=== PATIENT | male | born 1950 | race African-American/Black ===

== ENCOUNTER → 2017-12-02 | Outpatient (CLI) | payer MEDICARE ==
[~2017-12-02] MED LIST: CONTRAST GIVEN MC
[2017-12-02] MEDS: IOHEXOL 240 MG/ML 50ML VIAL. PO ×2 (08:45)
== END | disposition home or self-care (01) ==
LOC: CT 07:57
DX: K42.9 Umbilical hernia without obstruction or gangrene (principal); K43.9 Ventral hernia without obstruction or gangrene
CPT/HCPCS: 74176; Q9966

== ENCOUNTER 2018-08-09 17:14 | Emergency (ER) | payer MEDICARE ==
[~2018-08-09] VITALS: Ht 188 cm; Wt 90.7 kg
[~2018-08-09 17:14] MED LIST changes: +ALLO300T PO; +CEPH-264 PO; +CITA20TA6 PO; -CONTRAST GIVEN MC; +FEBU80TA2 PO; +METF500T16 PO; +OLME1TAB35 PO; +WARF-31 PO
[2018-08-09 17:31] VITALS: BP 122/67
[2018-08-09 18:17] LABS: BASO # 0.1 x10^3/uL (0.0-0.2); BASO % 1 % (0-3); EOS # 0.7 x10^3/uL (0.0-0.7); EOS % 8 % (0-3); HEMOGLOBIN 12.6 g/dL (13.0-17.5); LYMPH # 1.9 x10^3/uL (1.0-4.8); LYMPH % 22 % (24-48); MEAN CORPUSCULAR HEMOGLOBIN 29 pg (25-35); MEAN CORPUSCULAR HGB CONC 34 g/dL (31-37); MEAN CORPUSCULAR VOLUME 87 fL (79-100); MONO # 0.7 x10^3/uL (0.0-1.1); MONO % 8 % (0-9); NEUT # 5.3 x10^3uL (1.8-7.7); NEUT % 61 % (31-73); PLATELET COUNT 298 x10^3/uL (140-400); RED BLOOD COUNT 4.27 x10^6/uL (4.30-5.70); RED CELL DISTRIBUTION WIDTH 15.2 % (11.5-14.5); WHITE BLOOD COUNT 8.6 x10^3/uL (4.0-11.0)
[2018-08-09 18:26] LABS: PROTHROMBIN TIME PATIENT 15.5 SEC (11.7-14.0)
[2018-08-09 18:27] LABS: CALCIUM 9.7 mg/dL (8.5-10.1); CREATININE 1.7 mg/dL (0.7-1.3); GFR 48.7; POTASSIUM 4.6 mmol/L (3.5-5.1)
--- NOTE | 2018-08-09 19:14 | PHYS DOC ---
Past Medical History Past Medical History: Depression, Hypertension, TIA Additional Past Medical Histor: ENLARGED PROSTATE Past Surgical History: Tonsillectomy Additional Past Surgical Histo: HERNIA Alcohol Use: None Drug Use: None Adult General Chief Complaint Chief Complaint: OTHER COMPLAINTS HPI HPI Patient is a 68 year old AA male who was brought to the ER tonight for complaints of a bruise in his groin. His states that the patient is taking Coumadin for Afib. Pt denies any falls, injury, or pain at the site. states that his primary care doctor has been adjusting his coumadin dose to find the right doseage lately. Review of Systems Review of Systems Constitutional: Denies fever or chills [] Musculoskeletal: Denies joint pain [] Integument: reports bruising noted to left groin today Neurologic: Denies headache, focal weakness or sensory changes [] All other systems were reviewed and found to be within normal limits, except as documented in this note. Allergies Allergies Allergies Coded Allergies Type Severity Reaction Last Updated Verified No Known Drug Allergies 07/21/16 No Physical Exam Physical Exam Constitutional: Well developed, well nourished, no acute distress, non-toxic appearance. [] HENT: Normocephalic, atraumatic, bilateral external ears normal, nose normal. [ ] Eyes: PERRLA, conjunctiva normal, no discharge. [] Cardiovascular:Heart rate regular rhythm, no murmur [] Lungs & Thorax: Bilateral breath sounds clear to auscultation [] Skin: Warm, dry, rash noted to left inner thigh and groin that appears as a scaly raised red border consistent with tinea cruris Extremities: No tenderness, no cyanosis, no clubbing, ROM intact, no edema. [] Neurologic: Alert and oriented X 3, normal motor function, normal sensory function, no focal deficits noted. [] Psychologic: Affect normal, judgement normal, mood normal. [] Current Patient Data Vital Signs Vital Signs Date Time Temp Pulse Resp B/P (MAP) Pulse Ox O2 Delivery O2 Flow Rate FiO2 08/09/18 17:31 98.0 98 16 122/67 (85) 98 Room Air 98.0 Lab Values Laboratory Tests Test 08/09/18 18:05 White Blood Count 8.6 x10^3/uL (4.0-11.0) Red Blood Count 4.27 x10^6/uL (4.30-5.70) L Hemoglobin 12.6 g/dL (13.0-17.5) L Hematocrit 37.0 % (39.0-53.0) L Mean Corpuscular Volume 87 fL (79-100) Mean Corpuscular Hemoglobin 29 pg (25-35) Mean Corpuscular Hemoglobin Concent 34 g/dL (31-37) Red Cell Distribution Width 15.2 % (11.5-14.5) H Platelet Count 298 x10^3/uL (140-400) Neutrophils (%) (Auto) 61 % (31-73) Lymphocytes (%) (Auto) 22 % (24-48) L Monocytes (%) (Auto) 8 % (0-9) Eosinophils (%) (Auto) 8 % (0-3) H Basophils (%) (Auto) 1 % (0-3) Neutrophils # (Auto) 5.3 x10^3uL (1.8-7.7) Lymphocytes # (Auto) 1.9 x10^3/uL (1.0-4.8) Monocytes # (Auto) 0.7 x10^3/uL (0.0-1.1) Eosinophils # (Auto) 0.7 x10^3/uL (0.0-0.7) Basophils # (Auto) 0.1 x10^3/uL (0.0-0.2) Prothrombin Time 15.5 SEC (11.7-14.0) H Prothrombin Time INR 1.3 (0.8-1.1) H Sodium Level 141 mmol/L (136-145) Potassium Level 4.6 mmol/L (3.5-5.1) Chloride Level 107 mmol/L (98-107) Carbon Dioxide Level 26 mmol/L (21-32) Anion Gap 8 (6-14) Blood Urea Nitrogen 40 mg/dL (8-26) H Creatinine 1.7 mg/dL (0.7-1.3) H Estimated GFR (Cockcroft-Gault) 48.7 Glucose Level 100 mg/dL (70-99) H Calcium Level 9.7 mg/dL (8.5-10.1) Laboratory Tests 08/09/18 18:05 Laboratory Tests 08/09/18 18:05 EKG EKG [] Radiology/Procedures Radiology/Procedures [] Course & Med Decision Making Course & Med Decision Making Pertinent Labs and Imaging studies reviewed. (See chart for details) Dx: kristen lowe DDx: hematoma, elevated INR Prescription written for clotrimizole. Pt's INR was 1.3 today, follow up with PCP for continued monitoring and regulation of coumadin. Wear loose fitting clothing and boxer briefs, wash this area with antibacterial soap. Patient and his verbalized an understanding of home care, medications, follow-up, and return to ED instructions and was in agreement with the plan of care. [] [] Dragon Disclaimer Dragon Disclaimer This electronic medical record was generated, in whole or in part, using a voice recognition dictation system. Departure Departure Impression: Primary Impression: Kristen lowe Disposition: HOME, SELF-CARE Condition: STABLE Referrals: YANELI SHELTON MD (PCP) Patient Instructions: Jock Itch, [id number] Additional Instructions: Fill prescription and use as directed. Wear loose fitting clothing and boxer briefs. Bathe with antibacterial soap. Follow up with your primary care doctor in 1-2 days. You INR was 1.3 today. Return to the ER if your symptoms worsen. Scripts Clotrimazole (CLOTRIMAZOLE) 15 Gm Cream..g. 1 GARRY TP BID, #45 GM 0 Refills Prov: HERMINIA BRIONES APRN 08/09/18 Attending Co-Sign Attending Co-Sign The patient was seen and interviewed as well as examined at the bedside. The chart was reviewed. The case was discussed. Agree with the plan of care. HERMINIA BRIONES APRN Aug 09, 2018 19:14 KELLY BRADY MD Aug 12, 2018 14:37
[2018-08-09] MEDS ORDERED: CLOT15CR4 TP (19:57)
== END 2018-08-09 20:00 | disposition home or self-care (01) ==
LOC: ER 17:14
DX: B35.6 Tinea cruris (principal); I10 Essential (primary) hypertension; Z86.73 Personal history of transient ischemic attack (TIA), and cerebral infarction without residual deficits
CPT/HCPCS: 36415; 80048; 85025; 85610; 99284